=== PATIENT | male | born 1960 | race Caucasian/White ===

== ENCOUNTER → 2019-09-04 | Outpatient (CLI) | payer BC, OTHER ==
[~2019-09-04] MED LIST: AMBIEN 10 MG TA10 MG PO; LUNESTA3 MG PO; MELOXICAM15 MG PO; TADALAFIL10 MG PO; TELMISARTAN80 MG PO; TESTOSTERONE60 GM; TRAMADOL 50 MG50 MG PO
== END ==
LOC: LAB 08:00
PROVIDERS: ATTEND Student in an Organized Health Care Education/Training Program
DX: Z01.818 Encounter for other preprocedural examination (principal); Z11.59 Encounter for screening for other viral diseases

== ENCOUNTER 2019-09-09 06:54 | Day surgery (SDC) | payer BC, OTHER ==
--- NOTE | 2019-09-03 17:06 | EKG ---
[facility] [place] [address] [place] [address] ELECTROCARDIOGRAM REPORT Name: JARRETT LARA Room #: [place] [facility] [place]..#: [id number] Admission: Attend Phys: Samuel Bonilla MD Discharge: Date of : 56 Report #: [id number] THIS REPORT FOR: cc: Mack Elizabeth MD, Thomas P. MD Lundgren, Craig H. MD [facility] ~ THIS REPORT FOR: //name// [facility] Test Date: 2019-09-03 Test Time: 13:10:47 Pat Name: JARRETT LARA Department: Room: Gender: Income Tax Return Preparer: ITZEL JAMES : 1960 Requested By: Samuel Bonilla Order Number: [id number] MD: Wes Clements Measurements Intervals Husser Rate: 61 P: 34 NH: 162 QRS: 27 QRSD: 91 T: 253 QT: 384 QTc: 387 Interpretive Statements Sinus rhythm Borderline repolarization abnormality No previous ECG available for comparison Electronically Signed On 09-03-2019 17:06:14 CDT by Wes Clements [email or web address] <ELECTRONICALLY SIGNED> By: Wes Clements MD, [facility] 09/03/19 1706 D: 060 Wes Clements MD, FACC /EPI
[~2019-09-09] VITALS: Ht 172.7 cm; Wt 94.8 kg
[2019-09-09 07:35] VITALS: BP 156/89
[2019-09-09 12:00] VITALS: BP 150/88
[2019-09-09 13:30] VITALS: BP 124/74
[2019-09-09 14:30] VITALS: BP 132/78
[2019-09-09 15:30] VITALS: BP 154/84
--- NOTE | 2019-09-09 16:24 | O ---
[facility] [place] [address] OPERATIVE REPORT Name: JARRETT LARA Room #: 446-P [facility] M..#: [id number] Admission: 09/09/19 Attend Phys: Anne Boinlla MD Discharge: Date of : 56 Report #: [id number] THIS REPORT FOR: cc: Mack Elizabeth MD, Thomas P. MD Clymer, David J. MD ~ CC: Anne Elizabeth DATE OF SERVICE: 09/09/2019 PREOPERATIVE DIAGNOSIS: Degenerative lumbar spinal stenosis with radiculopathy, L4-L5 level. 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 PROCEDURE: Decompressive laminectomy, L4 and L5 level and decompression of left L4-L5 facet with excision of hemorrhagic facet cyst and partial diskectomy, L4-L5 level. 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 He has developed gradually increasing bilateral lower extremity pain, numbness and weakness with moderate foot drop, weakness on the left side in particular. Clinical exam and radiographic studies reveal a rather severe spinal stenosis at L4-L5, which is the result of mild or moderate disk bulging and much more severe hypertrophy of the facet joints and ligamentum combined with a left facet cyst. Given these problems, we have elected to go ahead with surgical decompression. DESCRIPTION OF PROCEDURE: The patient was taken to the operating room where he was placed under general anesthesia. Prophylactic intravenous antibiotics were administered. He was turned to the prone position. The low back was meticulously prepped and draped. C-arm was used to localize the appropriate level. A skin incision was made from the L4 down to the L5 level. This was carried through fascia and the paraspinal muscles were retracted out laterally. The spinous process at the inferior aspect of L4 and the superior aspect of L5 were excised and the ligamentum was identified. The ligamentum was elevated and excised with some difficulty as this area was quite tight. Attention was first directed distally and bilateral L5 laminectomy was performed. The canal was moderately tight through most of this area and did not really open up nicely until I had completed the L5 laminectomy. At this level, the canal seemed to be widely open and there was no further impingement. [address] [address] OPERATIVE REPORT Name: JARRETT LARA ANNE Room #: 446-P [facility]#: [id number] Admission: 09/09/19 Attend Phys: Anne Bonilla MD Discharge: Date of : 56 Report #: [id number] The dissection was then extended proximally, which is more difficult as the left L4-L5 facet and the L4 lamina were quite hypertrophied causing rather severe canal stenosis. This made dissection difficult. There was also an area of cystic deformity and a good deal of very dark hemorrhagic necrotic debris along the mid and inner aspect of the left L4-L5 facet. 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 The dissection was carefully extended proximally through the upper aspect of the L4 lamina. This was extended bilaterally toward the left and the right extending out to the facet joint. Both facets appeared to be intact and stable, but did demonstrate rather significant spurring and degenerative change. The canal opened up nicely above this area of decompression and at the mid L4 level the canal seemed to be widely opened and easily palpated extending more proximally. C-arm views were obtained with probe at the upper and lower end of the dissection, confirming that I was above and below the area of stenosis. The dura was retracted toward the midline to make sure that the left decompression was thorough and complete. The disk was found to be moderately prominent, although there was not a loose extruded fragment, the disk was bulging significantly. A small probe was passed into the disk and x-ray confirmed that I was at the L4-L5 level. A moderate amount of loose degenerative disk debris was removed from within the disk space and also sent to pathology. At this point, the canal seemed to be nicely opened. The dura and nerve root seemed to be intact and stable without any evidence of injury. The wound was gently but copiously irrigated. Good hemostasis was established with the use of Gelfoam and thrombin. 40 mg of Depo-Medrol were left in the epidural space, which was then covered with a small sheet of Gelfoam soaked in thrombin. A single Hemovac was left in the wound exiting through a separate stab incision. The fascia was then closed with multiple #1 Vicryl sutures. The subcutaneous tissues were closed with #1 Vicryl and 2-0 Monocryl. The skin was closed with skin jeramy. A sterile dressing was applied. The patient was awakened and returned to recovery room in good condition. <ELECTRONICALLY SIGNED> By: Anne Bonilla MD 09/09/19 1624 [id number] Anne Bonilla MD /nt
[2019-09-09 17:54] VITALS: BP 154/84
--- NOTE | 2019-09-09 18:13 | NUR ---
ASSUMED CARE OF THE PT AT 1215. PT IS MINIMUM ASSIST WITH GAIT BELT AND WALKER. HEMOVAC, SCD'S, JACQUE HOSE IN PLACE. PAIN CONTROLLED WITH PAIN MEDS, SEE EMAR. PT IS ON A CLEAR DIET. PT TITRATED OFF OF 2.0L NC TO RA. NO DRAINAGE FROM AQUACEL DRESSING. VS STABLE. PT TO D/C TO HOME WITH WALKER, MET WITH DR. CLINTON PRIOR TO D/C. FALL PRECAUTIONS IN PLACE, BED IN THE LOWEST POSITION AND CALL LIGHT IS WITHIN REACH. WILL CONTINUE TO MONITOR THE PT.
--- NOTE | 2019-09-10 17:06 | PATH ---
[facility] [place] [address] [place] [address] PATHOLOGY RPT PROCEDURE Name: KAZ WASHBURN Room #: [facility] [place].R.#: [id number] Admission: 09/09/19 Date of : 56 Discharge: 09/09/19 Report #: [id number] Path Case #: [id number] [facility] Accession Number: [id number] . 01 Material submitted: . PART A: vertebral column - LEFT LUMBAR 4, 5 FACET HEMORRHAGIC CYST PART B: vertebral column - L4,5 DEGENERATIVE HERNIATED DISC . 01 Clinical history: . Other intervertebral disc displacement, lumbar region, unspecified Thoracic, thoracolumbar and lumbosacral intervertebral disc disorder Sprain of ligaments of lumbar spine . 02 Diagnosis: A. Bone and soft tissue, "left L4-5 facet hemorrhagic cysts", excision: - Benign synovial cyst with fibrinoid necrosis and hemosiderin deposition. . B. Soft tissue, "L4-5 degenerated herniated disc", excision: - Hyaline cartilage with reactive change. . (IVETK:carl; 09/10/2019) [facility] 09/10/2019 1635 Local . 02 Electronically signed: . Jaclyn Sierra MD, Pathologist NPI- [id number] . 01 Gross description: . A. The specimen is received in formalin labeled "Kaz Washburn, L4,5 facet hemorrhagic cysts" and additionally labeled on the requisition as, "left" and consists of multiple fragments of red-brown tissue measuring 2.8 x 2.6 x 0.3 cm in aggregate which are entirely submitted in A1-A2 following decalcification. . B. The specimen is received in formalin labeled "Kaz Washburn, L4,5 degenerative herniated disc" and consists of multiple fragments of pink-jeffery tissue measuring 3.6 x 1.6 x 0.3 cm in aggregate which are entirely submitted in B1 following decalcification. ([facility]; 09/09/2019) [facility]EWA 09/10/2019 [facility] Local . 02 Pathologist provided ICD-10: M51.85, M51.87 . 02 CPT . 001025, 434065, 235380, [id number] [place] [address] PATHOLOGY RPT PROCEDURE Name: KAZ WASHBURN ANNE Room #: [facility] [place].R.#: [id number] Admission: 09/09/19 Date of : 56 Discharge: 09/09/19 Report #: [id number] Path Case #: [id number] Specimen Comment: A courtesy copy of this report has been sent to [phone], [phone] Specimen Comment: [phone] Specimen Comment: Report sent to / DR CUNNINGHAM Performed at: [address], [place] [id number] MD Tyler Costa MD Phone: [phone] Performed at: [address] [id number] MD Telma Silva MD Phone: [phone]
== END 2019-09-09 19:08 | disposition home or self-care (01) ==
LOC: OR 06:54 → TBA 06:55 → OR 09:09 → 4S 12:10 → OR 12:17
PROVIDERS: ATTEND Orthopaedic Surgery
DX: M48.061 Spinal stenosis, lumbar region without neurogenic claudication (principal); M51.26 Other intervertebral disc displacement, lumbar region; M47.26 Other spondylosis with radiculopathy, lumbar region; M71.38 Other bursal cyst, other site; M51.85 Other intervertebral disc disorders, thoracolumbar region; M51.87 Other intervertebral disc disorders, lumbosacral region; I10 Essential (primary) hypertension; E78.5 Hyperlipidemia, unspecified; N40.0 Benign prostatic hyperplasia without lower urinary tract symptoms; Z98.890 Other specified postprocedural states; Z79.899 Other long term (current) drug therapy; Z85.828 Personal history of other malignant neoplasm of skin
CPT/HCPCS: 10102; 50010; 50101; 50402; 50704; 50850; 51412; 56525; 62110; 62900; 70005